=== PATIENT | female | born 1975 | race Two or more races ===

== ENCOUNTER 2016-09-04 22:57 | Inpatient (IN) | payer BC, OTHER ==
[~2016-09-04] VITALS: Ht 170.2 cm; Wt 62.6 kg
[~2016-09-04 22:57] MED LIST: ALBU18HF2 INH; ASPI-612 PO; DIPH50CA37 PO; EPIN0.3P3 IJ; FLUT16SP NS; Gabapentin PO; IBUP-1481 PO; LORA-114 PO; NAPH15DR8 OP
[2016-09-05] MEDS ORDERED: diphenhydrAMINE 50 MG CAPSULE PO PRN (01:00)
[2016-09-05] MEDS ORDERED: MAGNESIUM HYDROXIDE 30 ML LIQUID UDC PO PRN (01:00)
[2016-09-05] MEDS ORDERED: THIAMINE HCL 200 MG/2 ML VIAL IM ONE (01:00)
[2016-09-05] MEDS ORDERED: MIRALAX 17 GM POWD.PACK PO PRN (01:00)
[2016-09-05] MEDS ORDERED: CLONIDINE HCL 0.1 MG TABLET PO PRN (01:00)
[2016-09-05] MEDS ORDERED: LORAZEPAM 2 MG/1 ML VIAL IM PRN (01:00)
[2016-09-05] MEDS ORDERED: PATIENT MAY USE OWN MED- MD OK EACHEYE PRN (01:00)
[2016-09-05] MEDS ORDERED: LORAZEPAM 1 MG TABLET PO PRN ×2 (01:00)
[2016-09-05] MEDS ORDERED: METHOCARBAMOL 750 MG TABLET PO PRN (01:00)
[2016-09-05] MEDS ORDERED: MAG HYDROX/AL HYDROX/SIMETH 30 ML LIQUID UDC PO PRN (01:00)
[2016-09-05] MEDS ORDERED: LOPERAMIDE HCL 2 MG CAPSULE PO PRN ×2 (01:00)
[2016-09-05 01:57] LABS: BASOPHILS # (AUTO) 0.1 K/uL (0.0-8.0); BASOPHILS % (AUTO) 0.9 % (0.0-2.0); EOSINOPHILS # (AUTO) 0.5 K/uL (0.0-0.7); EOSINOPHILS % (AUTO) 6.5 % (0.0-7.0); HEMOGLOBIN 14.9 g/dL (10.9-14.3); LYMPHOCYTES # (AUTO) 3.8 K/uL (20.0-40.0); LYMPHOCYTES % (AUTO) 51.5 % (20.5-51.5); MEAN CORPUSCULAR HEMOGLOBIN 33.3 uug (24.7-32.8); MEAN CORPUSCULAR HGB CONC 35 g/dL (32.3-35.6); MEAN CORPUSCULAR VOLUME 94.2 fL (75.5-95.3); MONOCYTES # (AUTO) 0.4 K/uL (2.0-10.0); MONOCYTES % (AUTO) 5.2 % (0.0-11.0); NEUTROPHILS # (AUTO) 2.7 K/uL (1.8-8.9); NEUTROPHILS % (AUTO) 35.9 % (38.5-71.5); PLATELET COUNT (AUTO) 278 K/uL (179-408); RED BLOOD CELL COUNT(AUTO) 4.46 MIL/uL (3.63-4.92); RED CELL DISTRIBUTION WIDTH 13.1 % (12.3-17.7); WHITE BLOOD COUNT (AUTO) 7.5 K/uL (3.8-11.8)
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
[2016-09-05 02:08] LABS: ALBUMIN 4.1 g/dL (3.4-5.0); BILIRUBIN,TOTAL 0.3 mg/dL (0.2-1.0); CALCIUM 8.9 mg/dL (8.5-10.1); MAGNESIUM 1.9 mg/dL (1.8-2.4); POTASSIUM 3.7 mmol/L (3.5-5.1); TOTAL PROTEIN, SERUM 7.8 g/dL (6.4-8.2)
[2016-09-05 02:19] LABS: THYROID STIMULATING HORMONE 1.104 mIU/mL (0.358-3.740)
[2016-09-05 02:24] LABS: HIV-1 p24 ANTIGEN NON REACTIVE (NONREACTIVE); HIV-1/2 ANTIBODY NON REACTIVE (NONREACTIVE)
[2016-09-05 02:48] LABS: *URINE HCG, QUAL NEGATIVE (NEGATIVE)
[2016-09-05 02:56] LABS: *AMPHETAMINE, URINE NEGATIVE (NEGATIVE); *BARBITURATE, URINE NEGATIVE (NEGATIVE); *CANNABINOID, URINE NEGATIVE (NEGATIVE); *COCCAINE, URINE NEGATIVE (NEGATIVE); *OPIATE, URINE NEGATIVE (NEGATIVE); *PHENCYCLIDINE SCREEN,URINE NEGATIVE (NEGATIVE)
[2016-09-05] MEDS: ONDANSETRON ODT 4 MG TAB.RAPDIS SL PRN ×2 (03:59→13:41)
[2016-09-05 04:00] VITALS: BP 103/70
--- NOTE | 2016-09-05 04:00 | NUR ---
PRN ATIVAN/ZOFRAN Pt complains of nausea, and observed to be anxious, agitated and restless. PRN Ativan 1 mg administered for CIWA 7, PRN Zofran administered as ordered. Respirations 16, breathing even and unlabored. Safety measures in place. Will monitor effectiveness.
[2016-09-05] MEDS ORDERED: THIAMINE HCL 200 MG/2 ML VIAL ONE (04:02)
[2016-09-05] MEDS ORDERED: LORAZEPAM 1 MG TABLET ONE (04:02)
[2016-09-05] MEDS ORDERED: ONDANSETRON ODT 4 MG TAB.RAPDIS ONE (04:09)
--- NOTE | 2016-09-05 05:00 | NUR ---
PRN ATIVAN/ZOFRAN REASSESSMENT PRN Ativan and Zofran effective. Pt lying comfortably in bed with eyes closed noted to be asleep. No facial grimacing. Respirations 16, breathing is even and unlabored. Pt safe with bed locked in lowest position, side rails up x2 and call light within reach. Will monitor.
[2016-09-05] MEDS: ONDANSETRON 4 MG/2 ML VIAL IM PRN (07:20)
--- NOTE | 2016-09-05 07:23 | NUR ---
PRN ZOFRAN IM Pt noted with nausea and vomiting x1. PRN Zofran IM administered as ordered. Breathing even and unlabored, respirations 16. Safety measures in place. Will endorse to monitor effectiveness.
--- NOTE | 2016-09-05 07:29 | NUR ---
END OF SHIFT Pt is a 41 year old female admitted on 09/05/16 for ETOH, opiate and methadone dependency. She is full code with allergy to walnuts and PCN. She reports PMHx of anxiety. At 0400 she received PRN Ativan 1 mg for anxiety, agitation and restlessness and PRN Zofran for nausea. PRN medications were effective. At 0723 pt received PRN Zofran IM for nausea and vomiting x1. She slept a total of 2 hrs, Intake: 690 mL, Void: x1, BM: 0. COWS:8, CIWA:7. Pt is alert and oriented x4, breathing is even and unlabored. Pt safe with bed locked in lowest position, side rails up x2 and call light within reach. Endorsed to oncoming shift.
[2016-09-05 08:00] VITALS: BP 107/73
--- NOTE | 2016-09-05 08:00 | NUR ---
Start of Shift Pt is a 41 year old female admitted for ETOH dependence, placed on Ativan taper. Pt reported consuming Vodka 1/5 and a few beers for the past 6 months. PMH: anxiety, allergies to PCN and walnuts, regular diet, fall/seizure precautions and full code. Upon assessment, pt reports feeling anxious, restless, nauseated, chills/flushing, visible tremors, skin is clammy/flushed, pt reports muscle aches throughout body with mild dizziness/headache, respirations are unlabored, denies SOB/chest pain, denies SI/HI, safety measures in place, call light within reach, side rails up x2, bed locked and in low position. Will continue to monitor.
--- NOTE | 2016-09-05 08:23 | NUR ---
PRN Zofran IM Reassessment PRN Zofran IM administered by night nurse at 0723 d/t n/v. Upon reassessment, reports no episodes of vomiting, reports mild nausea. Needs met, safety measures in place. Will continue to monitor.
[2016-09-05] MEDS: MULTIVITAMINS,THERAPEUTIC TABLET PO SCH (08:44)
[2016-09-05] MEDS: FOLIC ACID 1 MG TABLET PO SCH (08:45)
[2016-09-05] MEDS: THIAMINE HCL 100 MG TABLET PO SCH (08:45)
[2016-09-05] MEDS: IBUPROFEN 600 MG TABLET PO PRN ×2 (08:45→18:11)
[2016-09-05] MEDS: GABAPENTIN 300 MG CAPSULE PO SCH ×3 (08:45→21:10)
[2016-09-05] MEDS: LORATADINE 10 MG TABLET PO SCH (08:45)
--- NOTE | 2016-09-05 08:45 | NUR ---
PRN Administration Pt reported headache, rated 5/10, request relief of pain. Motrin 600mg PRN administered. Safety measures in place. Will continue to monitor.
[2016-09-05] MEDS: LORAZEPAM 1 MG TABLET PO SCH ×4 (08:49→21:09)
[2016-09-05] MEDS: FLUTICASONE PROP NASAL SPRAY 16 GM BOTTLE NS SCH (08:55)
[2016-09-05] MEDS ORDERED: TUBERCULIN,PURIF.PROT.DERIV. 5 TU/0.1 ML TEST ID ONE (09:00)
--- NOTE | 2016-09-05 09:45 | NUR ---
PRN Reassessment Upon reassessment, pt rated headache 2-3/10. Pt states headache is subsiding. Needs met. Safety measures in place. Will continue to monitor.
[2016-09-05 12:00] VITALS: BP 126/85
--- NOTE | 2016-09-05 12:16 | NUR ---
Therapist encouraged client to attend group therapy session.
--- NOTE | 2016-09-05 13:41 | NUR ---
PRN Administration Pt reported feeling nausea, no emesis present. Zofran 4mg ODT administered. Safety measures in place. Will continue to monitor.
--- NOTE | 2016-09-05 14:41 | NUR ---
PRN Reassessment Upon reassessment, pt reports a decrease in nausea. needs met. safety measures in place. Will continue to monitor.
[2016-09-05 16:00] VITALS: BP 112/88
--- NOTE | 2016-09-05 18:11 | NUR ---
PRN Administration Pt reported headache rated 6/10, requested relief. Motrin 600mg PRN administered. Safety measures in place. will continue to monitor.
[2016-09-05] MEDS: NAPHAZOLINE/PHENIR OPHT DROP 15 ML BOTTLE EACHEYE PRN (18:19)
--- NOTE | 2016-09-05 19:11 | NUR ---
PRN Reassessment Pt stated subsiding headache, 06/21. Safety measures in place. Will continue to monitor.
--- NOTE | 2016-09-05 19:13 | NUR ---
End of Shift Pt is a 41 year old female admitted for ETOH dependence, placed on Ativan taper. Pt reported consuming Vodka 1/5 and a few beers for the past 6 months. PMH: anxiety, allergies to PCN and walnuts, regular diet, fall/seizure precautions and full code. During shift, pt presented with anxiety, restlessness, nausea, chill/flushing, visible tremors, skin clammy/flushed, presented with muscle aches with mild dizziness/headache - scheduled taper medications administered, CIWA 12 at 1600, COWS 6 at 1600 . PRN Motrin 600mg x2 PRN administered for headache, effective as reported by patient. Naphcon-A opht drops administered for c/o itchy eyes, effective. Pt continues on Ativan taper. Patient encouraged to attend group therapies/sessions to learn new coping skills to recent relapse. Patient encouraged adequate PO fluid intake as tolerated. Intake of 1921 ml PO, with voids x3. Safety measures in place, call light within reach, side rails up x2, bed locked and in low position. Endorsed to hourly shift nurse.
--- NOTE | 2016-09-05 19:15 | NUR ---
Start of Shift Note: Patient is a 41 y/o female admitted on 09/05/16 for ETOH dependence. Patient reported drinking 750ml of Vodka and a few beers daily for 6 months. Patient also has been using [place] 60-70 mg daily for 6 months. Last use was 08/29/16 and has used Methadone 10mg once. Patient has Anxiety. No seizure history noted. Patient is on a regular diet with allergies Penicillins and Wallnuts. Full Code status. Fall and Seizure precaution noted. Patient was started on a 5-day Ativan taper and tolerating well. Last CIWA is 11, COWS 6 noted. Patient was given PRN Zofran and Motrin x2 during day shift. No episode of vomiting during day shift noted. Patient is alert & oriented x4. No shortness of breath noted. Respiration even & unlabored. Abdomen soft & non-distended. Bowel sounds active in all four quadrants. No nausea/vomiting noted. Patient denies body pain/discomfort. Patient complains of chills, mild headache and dizziness. Bilateral hand tremors noted. No hallucinations. Patient denies Si/HI. Safety precautions are in place. Bed locked in lowest position. Both side rails up. Call light within pt's reach. Will continue to monitor patient.
[2016-09-05 20:00] VITALS: BP 132/87
[2016-09-05] MEDS: PATIENT MAY USE OWN MED- MD OK INH PRN (21:10)
--- NOTE | 2016-09-05 21:10 | NUR ---
PRN Albuterol Patient complains of Shortness of breath. Patient noted with slight wheezing upon auscultation. PRN Albuterol given as ordered. Will continue to monitor patient.
[2016-09-05] MEDS: ACETAMINOPHEN 325 MG TABLET PO PRN (21:18)
--- NOTE | 2016-09-05 21:18 | NUR ---
PRN Tylenol Patient complains of mild headache. PRN Tylenol administered as ordered. Will reassess effectiveness of medication in 1 hour. Will continue to monitor patient.
--- NOTE | 2016-09-05 21:30 | NUR ---
ECG EKG DONE PER MD ORDER. EKG SHOWS NORMAL SINUS RHYTHM, NORMAL ECG NOTED. MD AWARE
--- NOTE | 2016-09-05 21:40 | NUR ---
PRN Reassessment Pt denies SOB at this time. No wheezing noted upon auscultation. All needs met. safety precautions are in place. Will continue to monitor patient.
--- NOTE | 2016-09-05 22:18 | NUR ---
PRN Reassessment Patient verbalized relief from headache. All needs met. Safety precautions are in place. Will continue to monitor patient.
[2016-09-06] VITALS: BP_SYST 121; BP_SYST 122; BP_DIAS 75; BP_DIAS 76
[2016-09-06 04:00] VITALS: BP 132/91
[2016-09-06] MEDS: PATIENT MAY USE OWN MED- MD OK INH PRN (04:51)
[2016-09-06] MEDS: NAPHAZOLINE/PHENIR OPHT DROP 15 ML BOTTLE EACHEYE PRN (04:51)
[2016-09-06] MEDS: HYDROXYZINE PAMOATE 25 MG CAPSULE PO PRN ×3 (05:38→17:47)
[2016-09-06] MEDS: IBUPROFEN 600 MG TABLET PO PRN ×3 (06:53→17:47)
--- NOTE | 2016-09-06 06:53 | NUR ---
PRN MOTRIN PATIENT COMPLAINS OF 5/10 LEFT RIB PAIN RADIATING TO RIGHT CHEST AND RIGHT ARMPIT. PATIENT APPEARS ANXIOUS. NO STOMACH CRAMPS NOTED. NO RASHES OR ITCHINESS NOTED. VITALS WNL. B/P 138/93, HR 82, RR 18, O2SAT 98% TEMP 98.0. PRN MOTRIN GIVEN ORDERED. SAFETY PRECAUTIONS IN PLACE. WILL CONTINUE TO MONITOR PATIENT.
--- NOTE | 2016-09-06 07:23 | NUR ---
End of Shift Note: Patient is a 41 y/o female admitted on 09/05/16 for ETOH dependence. Patient reported drinking 750ml of Vodka and a few beers daily for 6 months. Patient also has been using [place] 60-70 mg daily for 6 months. Last use was 08/29/16 and has used Methadone 10mg once. Patient has Anxiety. No seizure history noted. Patient is on a regular diet with allergies Penicillins and Wallnuts. Full Code status. Fall and Seizure precaution noted. Patient was started on a 5-day Ativan taper and tolerating well. last COWS 5 CIWA 5. Pt was given PRN Tylenol, Albuterol 2x, Eyedrops, Motrin & Vistaril and were effective. Pt complained of right rib pain radiating to right chest and right armpit. EKG done yesterday and shown normal sinus rhythm with normal ECG result noted. Pt stated that she has been having the chest pain that is radiating to shoulders for 2 weeks now. PRN Motrin was given to relieve discomfort. Vitals remained WNL. Pt slept for a total of 6 hours. Pt consumed 1737ml of fluids. Voided 2x with no bowel movement. All needs attended & met. Safety precautions are in place. Will endorse to day shift nurse.
--- NOTE | 2016-09-06 07:25 | NUR ---
Start Of Shift Received, patient is a 41 y/o female admitted on 09/05/16 for ETOH dependence. Pt A&O x3 this am. Pt is on a 5 day Ativan taper. Pt stated that she feels anxious and was not able to sleep well last night. RR even and unlabored at 18. Pt presented with a mild headache, stated she had a stuffy nose. Pt received PRN Tylenol, Albuterol 2x, Eye drops, Motrin & Vistaril, medications were effective per restaurant shift supervisor nurse. Pt slept a total of 6 hours last night, her last COWS 5 and her last CIWA 5. Pt had an EKG completed last night, not abnormalities found, MD aware. Encouraged increased fluids to help facilitate detox. Pt continues to be on fall and seizure precautions, pt is allergic to PNC and walnuts. Side rails upx2, call light within reach, bed locked in lowest position, will continue to monitor and provide care.
[2016-09-06 08:00] VITALS: BP 137/87
[2016-09-06] MEDS: GABAPENTIN 300 MG CAPSULE PO SCH ×2 (08:41→15:17)
[2016-09-06] MEDS: LORAZEPAM 1 MG TABLET PO SCH ×3 (08:41→21:17)
[2016-09-06] MEDS: MULTIVITAMINS,THERAPEUTIC TABLET PO SCH (08:41)
[2016-09-06] MEDS: FLUTICASONE PROP NASAL SPRAY 16 GM BOTTLE NS SCH (08:41)
[2016-09-06] MEDS: LORATADINE 10 MG TABLET PO SCH (08:42)
[2016-09-06] MEDS: FOLIC ACID 1 MG TABLET PO SCH (08:42)
[2016-09-06] MEDS: THIAMINE HCL 100 MG TABLET PO SCH (08:42)
[2016-09-06] MEDS: ONDANSETRON ODT 4 MG TAB.RAPDIS SL PRN (10:43)
--- NOTE | 2016-09-06 10:45 | NUR ---
PRN MEDICATION Pt c/o Anxiety presented with agitation and restlessness pt also complained of generalized pain rating it 5/10 and nausea, no vomiting reported, requested something for relief, non-pharmacological techniques interventions provided x3 and were not effective. PRN Vistaril 25mg, Zofran ODT4mg and Motrin 600mg administered PO, educated pt about s/e of medication and when to contact nurse. all needs met, all safety measures in place, will continue to monitor.
--- NOTE | 2016-09-06 11:45 | NUR ---
PRN REASSESSMENT Upon reassessment medication noted to be effective pt reported a decrease in pain to 1/10 reported a decrease in nausea and anxiety. Instructed pt to contact nurse if pain reoccurred. All needs met, all safety measures in place will continue to monitor.
[2016-09-06 12:00] VITALS: BP 125/77
[2016-09-06] MEDS ORDERED: CLONIDINE HCL 0.1 MG TABLET PO ONE (12:15)
[2016-09-06] MEDS ORDERED: LORAZEPAM 1 MG TABLET PO ONE (12:15)
[2016-09-06 13:25] LABS: HCV AB <0.1 s/co ratio (0.0-0.9); HEPATITIS B CORE AB, IgM Negative (Negative); HEPATITIS B SURFACE AG Negative (Negative)
[2016-09-06 16:00] VITALS: BP 129/90
--- NOTE | 2016-09-06 17:45 | NUR ---
PRN MEDICATION Pt c/o Anxiety presented with agitation and restlessness pt also complained of headache rating it 7/10 requested something for relief, non-pharmacological techniques interventions provided x3 and were not effective. PRN Vistaril 25mg, and Motrin 600mg administered PO, educated pt about s/e of medication and when to contact nurse. all needs met, all safety measures in place, will continue to monitor.
--- NOTE | 2016-09-06 18:49 | NUR ---
PRN reassessment Medication effective pt reported a decrease in pain to 3/10 and stated that she is no longer feeling anxious.
--- NOTE | 2016-09-06 18:50 | NUR ---
End Of Shift Pt is a 41 year old female admitted for ETOH. Full code regular diet continues to be on fall and seizure precautions, denies any food or drug allergies. Patient alert and oriented x4, vital signs were stable during shift. Patient compliant with therapeutic plan of care. Patient continues on 5 day Ativan taper as ordered, well tolerated, no ASE noted. Patient encouraged adequate PO fluid intake as tolerated. Upon assessment patient presented with c/o chills, dilated pupils, stomach cramps, fatigue, mild anxiety, mild agitation and barely sweating with her last COWS score of: 5 and CIWA score of: 5 @1600. Detox medication effective at reducing withdrawal symptoms. Patient encouraged to attend group therapies/sessions to learn new coping skills to recent relapse, noted attending groups throughout the day, patient denies SI/HI. Pt ate all of her meals, her total fluid intake was 2996 with 5 void and 1 bowel movement ,Pt received PRN Vistaril 25mgx2 Zofran ODT 4mg, Motrin 400mg x2 all medications were effective. Safety measures in place. Call light kept within reach. Patient endorsed to shift superintendent nurse, all pertinent information discussed.
--- NOTE | 2016-09-06 19:15 | NUR ---
Start of Shift Note: Received pt from day shift nurse. Patient is a 41 y/o female admitted on 09/05/16 for ETOH dependence. Patient reported drinking 750ml of Vodka and a few beers daily for 6 months. Patient also has been using [place] 60-70 mg daily for 6 months. Last use was 08/29/16 and has used Methadone 10mg once. Patient has Anxiety. No seizure history noted. Patient is on a regular diet with allergies Penicillins and Wallnuts. Full Code status. Fall and Seizure precaution noted. Patient is on a 5-day Ativan taper and tolerating well. Last CIWA is 6, COWS 5 noted. Patient was given PRN Zofran, Motrin x2, Vistaril x2, a one time Ativan & Clonidine during day shift. No episode of vomiting during day shift noted. Patient is alert & oriented x4. Patient is anxious and emotional. Patient is not in distress. No shortness of breath noted. Respiration even & unlabored. Abdomen soft & non-distended. Bowel sounds active in all four quadrants. No nausea/vomiting noted. Patient denies body pain/discomfort. Patient complains of chills, sweating, 6/10 headache and dizziness. Bilateral hand tremors noted. No hallucinations. Patient denies Si/HI. Safety precautions are in place. Bed locked in lowest position. Both side rails up. Call light within pt's reach. Will continue to monitor patient.
[2016-09-06 20:00] VITALS: BP 122/91
[2016-09-06] MEDS ORDERED: GABAPENTIN 300 MG CAPSULE PO SCH (21:00)
[2016-09-06] MEDS: ACETAMINOPHEN 325 MG TABLET PO PRN (21:17)
--- NOTE | 2016-09-06 21:17 | NUR ---
PRN Administration Patient complaining of 6/10 headache and dizziness. Instructed patient to stay in bed for precaution. Patient requesting medication for relief. PRN Tylenol administered as ordered. Encourage pt to increase fluid intake. Pt also requesting for medication to help her sleep. PRN Trazodone given as ordered. Safety precautions are in place. Will continue to monitor patient.
[2016-09-06] MEDS: TRAZODONE 50 MG TABLET PO PRN (21:18)
[2016-09-06] MEDS: PRAZOSIN HCL 1 MG CAPSULE PO SCH (21:18)
--- NOTE | 2016-09-06 22:17 | NUR ---
PRN Reassessment Patient still awake at this time. Pt verbalized relief from headache. Patient lying in bed and appears comfortable. Will continue to monitor patient.
[2016-09-07] VITALS: BP 121/78
[2016-09-07 04:00] VITALS: BP 118/80
[2016-09-07] MEDS: IBUPROFEN 600 MG TABLET PO PRN ×3 (04:30→21:02)
--- NOTE | 2016-09-07 04:30 | NUR ---
PRN Administration Patient complains of headache and back pain. Patient noted to be restless with facial grimacing noted. PRN Motrin administered as ordered. Will continue to monitor patient.
--- NOTE | 2016-09-07 05:30 | NUR ---
PRN Reassessment Patient is asleep at this time and appears comfortable. No facial grimacing noted. Patient not in any distress. No shortness of breath noted. safety precautions are in place. Will continue to monitor patient.
--- NOTE | 2016-09-07 07:02 | NUR ---
End of Shift Note: Patient is a 41 y/o female admitted on 09/05/16 for ETOH dependence. Patient has Anxiety. No seizure history noted. Patient is on a regular diet with allergies to Penicillins and Wallnuts. Full Code status. Fall and Seizure precaution noted. Patient is on a 5-day Ativan taper and tolerating well. Last COWS is 3 CIWA 5. Pt reported that detox medication is effective in controlling her withdrawal symptoms. Patient is compliant with medications and attends groups to learn new coping skills. Patient remained stable and Vitals remained WNL throughout my shift. Pt was given PRN Trazodone, Tylenol & Motrin and were effective. Pt slept for a total of 7 hours. Pt consumed 1796 ml of fluids. Voided 2x with 1x bowel movement. All needs attended & met. Safety precautions are in place. Will endorse to day shift nurse.
--- NOTE | 2016-09-07 07:41 | NUR ---
START OF SHIFT NOTE: Received report from diagnostic imaging manager nurse. Patient is a 41 y/o female admitted on 09/05/16 for ETOH dependence. Pt is currently on a 5 day Ativan taper. Tolerating well. Pt is awake, alert and oriented X4. Color good, skin warm and dry. Respirations even and unlabored. Pt resting in bed. Safety precautions observed. Call light within reach. Will continue to monitor.
[2016-09-07 08:00] VITALS: BP 122/78
--- NOTE | 2016-09-07 09:30 | NUR ---
VSS CIWA 10. Pt with anxiety and tremors. Albuterol inhaler 2 puffs prn administered
[2016-09-07] MEDS: FLUTICASONE PROP NASAL SPRAY 16 GM BOTTLE NS SCH (09:32)
[2016-09-07] MEDS: GABAPENTIN 300 MG CAPSULE PO SCH ×3 (09:32→21:02)
[2016-09-07] MEDS: LORATADINE 10 MG TABLET PO SCH (09:32)
[2016-09-07] MEDS: MULTIVITAMINS,THERAPEUTIC TABLET PO SCH (09:32)
[2016-09-07] MEDS: LORAZEPAM 1 MG TABLET PO SCH ×3 (09:33→16:47)
[2016-09-07] MEDS: PATIENT MAY USE OWN MED- MD OK INH PRN (09:33)
[2016-09-07] MEDS: FOLIC ACID 1 MG TABLET PO SCH (09:33)
[2016-09-07] MEDS: THIAMINE HCL 100 MG TABLET PO SCH (09:33)
--- NOTE | 2016-09-07 10:45 | NUR ---
Zofran 4mg sl prn given for N+V
[2016-09-07] MEDS: ONDANSETRON ODT 4 MG TAB.RAPDIS SL PRN ×2 (10:47→14:18)
--- NOTE | 2016-09-07 11:49 | NUR ---
Pt states feels much improved after Zofran prn. Emesis ceased and nausea improved.
--- NOTE | 2016-09-07 12:00 | NUR ---
MOM 30cc po prn, Miralax po prn for constipation and Motrin 600mg po prn given for headache.
[2016-09-07] MEDS ORDERED: LORAZEPAM 1 MG TABLET PO ONE (12:45)
--- NOTE | 2016-09-07 12:45 | NUR ---
Pt states feels improved after extra dose of Ativan 2 mg. CIWA 9
--- NOTE | 2016-09-07 12:45 | NUR ---
Pt states feels improved after Ativan 2mg extra dose. ZOILA 9 Addendum: 09/07/16 at 1358 by JAY CARUSO RN please disregard duplicate post
--- NOTE | 2016-09-07 12:52 | NUR ---
Extra dose of Ativan 2mg po X1 given as ordered. CIWA 11 and patient with moderate upper extremity tremors and anxiety.
[2016-09-07 12:57] VITALS: BP 130/80
--- NOTE | 2016-09-07 13:00 | NUR ---
Pt states no results after MOM and Mirilax prn
--- NOTE | 2016-09-07 13:56 | NUR ---
Pt states vomited after eating lunch.
--- NOTE | 2016-09-07 14:20 | NUR ---
Zofran 4mg sl prn and Vistaril 25mg po prn given.
[2016-09-07] MEDS: HYDROXYZINE PAMOATE 25 MG CAPSULE PO PRN (14:21)
--- NOTE | 2016-09-07 15:15 | NUR ---
Pt feels improved after Zofran 4mg sl prn. Emesis ceased and nausea improved
--- NOTE | 2016-09-07 15:20 | NUR ---
Pt states feels less anxious after Vistaril 25mg po prn
[2016-09-07] MEDS ORDERED: MAGNESIUM CITRATE 296 ML BOTTLE PO ONE (16:45)
[2016-09-07] MEDS: ONDANSETRON 4 MG/2 ML VIAL IM PRN (17:12)
--- NOTE | 2016-09-07 17:15 | NUR ---
Zofran 4mg IM prn given for N+V.
[2016-09-07 17:22] VITALS: BP 115/86
--- NOTE | 2016-09-07 18:05 | NUR ---
Pt feels improved after Zofran 4mg IM prn. Eating dinner.
--- NOTE | 2016-09-07 18:38 | NUR ---
END OF SHIFT NOTE: Report given to director of academic nurse. Patient is a 41 y/o female admitted on 09/05/16 for ETOH dependence. Pt is currently on a 5 day Ativan taper. Tolerating well. Pt is awake, alert and oriented X4. Color good, skin warm and dry. Respirations even and unlabored. Vital signs have remained stable throughout shift . Last CIWA 11 @ 1700. Pt resting in bed. Pt received Zofran 4mg sl prn given for N+V X2 1045 and 1420. Vistaril 25mg po prn given @ 1420. Also received Zofran 4mg IM prn @ 1715. Extra dose of Ativan 2mg po X1 given @ 1252. Also received MOM and Miralax prn @ 1200 without results. Safety precautions observed. Call light within reach.
--- NOTE | 2016-09-07 19:15 | NUR ---
Start of Shift Note: Received pt from day shift nurse. Patient is a 41 y/o female admitted on 09/05/16 for ETOH dependence. Patient reported drinking 750ml of Vodka and a few beers daily for 6 months. Patient also has been using [place] 60-70 mg daily for 6 months. Last use was 08/29/16 and has used Methadone 10mg once. Patient has Anxiety. No seizure history noted. Patient is on a regular diet with allergies Penicillins and Wallnuts. Full Code status. Fall and Seizure precaution noted. Patient is on a 5-day Ativan taper and tolerating well. Last CIWA is 11. Pt had been constantly nauseous the whole day and had 2 episodes of vomiting during day shift. Patient was given PRN Zofran SL x2, Zofran IM, Ativan 2mg, Albuterol Vistaril, MOM & Miralax. Patient is alert & oriented x4. Patient appears anxious. Patient is not in distress. No shortness of breath noted. Respiration even & unlabored. Abdomen soft & non-distended. Bowel sounds active in all four quadrants. No nausea/vomiting noted. Patient denies body pain/discomfort. Patient complains of stomach cramps, constipartion, chills, sweating, 6/10 headache and dizziness. Bilateral hand tremors noted. No hallucinations. Patient denies Si/HI. Safety precautions are in place. Bed locked in lowest position. Both side rails up. Call light within pt's reach. Will continue to monitor patient.
[2016-09-07 20:00] VITALS: BP 109/72
[2016-09-07] MEDS ORDERED: LORAZEPAM 1 MG TABLET PO SCH (21:00)
[2016-09-07] MEDS: PRAZOSIN HCL 1 MG CAPSULE PO SCH (21:02)
[2016-09-07] MEDS: TRAZODONE 50 MG TABLET PO PRN (21:02)
--- NOTE | 2016-09-07 21:02 | NUR ---
PRN Motrin & Trazodone Patient complains of 7/10 headache and dizziness and requesting for medication for relief. Patient is anxious and restless. Pt also requesting for medication to help her sleep. PRN Motrin & Trazodone given as ordered. Will reassess in 1 hour for effectiveness of medication.
--- NOTE | 2016-09-07 22:02 | NUR ---
PRN Reassesment Pateint still awake at this time. Patient verbalized relief from headache with a pain scale of 3/10 noted at this time. Patient lying in bed and appears comfortable. Will continue to monitor patient.
[2016-09-08] VITALS: BP 118/81
[2016-09-08 04:00] VITALS: BP 118/80
--- NOTE | 2016-09-08 07:04 | NUR ---
End of Shift Note: Patient is a 41 y/o female admitted on 09/05/16 for ETOH dependence. Patient has Anxiety. No seizure history noted. Patient is on a regular diet with allergies to Penicillins and Wallnuts. Full Code status. Fall and Seizure precaution noted. Patient is on a 5-day Ativan taper and tolerating well. Last COWS is 7 CIWA 9. Pt reported that detox medication is effective in controlling her withdrawal symptoms. Patient is compliant with medications. Patient was given Magnesium Citrate for constipation but still with no bowel movement noted throughout the shift. Pt was also given PRN Motrin for headache and Trazodone for sleep and were effective. Patient remained stable and Vitals remained WNL throughout my shift. Pt slept for a total of 9 hours. Pt consumed 896 ml of fluids. Voided 2x with no bowel movement. All needs attended & met. Safety precautions are in place. Will endorse to day shift nurse.
--- NOTE | 2016-09-08 07:31 | NUR ---
START OF SHIFT NOTE: Received report from police shift commander nurse. Patient is a 41 y/o female admitted on 09/05/16 for ETOH dependence. Pt is currently on a 5 day Ativan taper. Tolerating well. Pt is awake, alert and oriented X4. Color good, skin warm and dry. Respirations even and unlabored. Pt resting in bed. Safety precautions observed. Call light within reach. Will continue to monitor.
[2016-09-08 07:46] LABS: BASOPHILS % (AUTO) 0.4 % (0.0-2.0); EOSINOPHILS # (AUTO) 0.3 K/uL (0.0-0.7); EOSINOPHILS % (AUTO) 5.5 % (0.0-7.0); HEMATOCRIT 42.2 % (31.2-41.9); HEMOGLOBIN 14.3 g/dL (10.9-14.3); LYMPHOCYTES # (AUTO) 1.7 K/uL (20.0-40.0); LYMPHOCYTES % (AUTO) 28.6 % (20.5-51.5); MEAN CORPUSCULAR HGB CONC 34 g/dL (32.3-35.6); MEAN CORPUSCULAR VOLUME 97.1 fL (75.5-95.3); MONOCYTES # (AUTO) 0.4 K/uL (2.0-10.0); MONOCYTES % (AUTO) 7.6 % (0.0-11.0); NEUTROPHILS # (AUTO) 3.5 K/uL (1.8-8.9); NEUTROPHILS % (AUTO) 57.9 % (38.5-71.5); PLATELET COUNT (AUTO) 235 K/uL (179-408); RED BLOOD CELL COUNT(AUTO) 4.34 MIL/uL (3.63-4.92); RED CELL DISTRIBUTION WIDTH 13.2 % (12.3-17.7); WHITE BLOOD COUNT (AUTO) 5.9 K/uL (3.8-11.8)
[2016-09-08 08:05] LABS: ALBUMIN 3.5 g/dL (3.4-5.0); BILIRUBIN,DIRECT 0.1 mg/dL (0.0-0.2); BILIRUBIN,TOTAL 0.3 mg/dL (0.2-1.0); CALCIUM 9.1 mg/dL (8.5-10.1); CREATININE 0.9 mg/dL (0.6-1.3); MAGNESIUM 2.3 mg/dL (1.8-2.4); PHOSPHOROUS 4.5 mg/dL (2.5-4.9); POTASSIUM 4.3 mmol/L (3.5-5.1); TOTAL PROTEIN, SERUM 6.8 g/dL (6.4-8.2)
[2016-09-08] MEDS: THIAMINE HCL 100 MG TABLET PO SCH (09:43)
[2016-09-08] MEDS: FOLIC ACID 1 MG TABLET PO SCH (09:43)
[2016-09-08] MEDS: GABAPENTIN 300 MG CAPSULE PO SCH ×3 (09:43→20:59)
[2016-09-08] MEDS: FLUTICASONE PROP NASAL SPRAY 16 GM BOTTLE NS SCH (09:44)
[2016-09-08] MEDS: LORATADINE 10 MG TABLET PO SCH (09:44)
[2016-09-08] MEDS: MULTIVITAMINS,THERAPEUTIC TABLET PO SCH (09:44)
[2016-09-08] MEDS: LORAZEPAM 1 MG TABLET PO SCH ×2 (09:44→14:33)
[2016-09-08 09:55] VITALS: BP 100/60
--- NOTE | 2016-09-08 10:03 | NUR ---
VSS CIWA 8 Pt still with anxiety, tremors and headache.
[2016-09-08] MEDS: PATIENT MAY USE OWN MED- MD OK INH PRN (11:04)
[2016-09-08] MEDS ORDERED: ALBUTEROL SULFATE 8 GM HFA.AER.AD IH PRN (11:15)
[2016-09-08] MEDS ORDERED: ALBUTEROL SULFATE 2.5 MG/3 ML NEBU NEB PRN (11:15)
--- NOTE | 2016-09-08 11:15 | NUR ---
Albuterol inhaler 2 puffs prn given for cough.
[2016-09-08] MEDS ORDERED: LORAZEPAM 1 MG TABLET PO ONE (12:00)
--- NOTE | 2016-09-08 12:30 | NUR ---
Ativan 1mg po X1 given as ordered. CIWA 10
[2016-09-08 12:56] VITALS: BP 100/60
[2016-09-08] MEDS: DICYCLOMINE HCL 20 MG TABLET PO PRN (13:25)
--- NOTE | 2016-09-08 13:29 | NUR ---
Clonidine 0.1 mg po prn, Bentyl 20mg po prn and Robaxin 750mg po prn given
--- NOTE | 2016-09-08 13:30 | NUR ---
Pt states anxiety lessened after Ativan 1mg po X1. CIWA 9
[2016-09-08 17:50] VITALS: BP 111/74
[2016-09-08] MEDS: HYDROXYZINE PAMOATE 25 MG CAPSULE PO PRN (18:20)
[2016-09-08] MEDS: IBUPROFEN 600 MG TABLET PO PRN (18:20)
--- NOTE | 2016-09-08 18:24 | NUR ---
Motrin 600mg po prn and Vistaril 50mg po prn given for anxiety.
--- NOTE | 2016-09-08 18:25 | NUR ---
END OF SHIFT NOTE: Report given to evening or night nurse supervisor nurse. Patient is a 41 y/o female admitted on 09/05/16 for ETOH dependence. Pt is currently on a 5 day Ativan taper. Tolerating well. Pt is awake, alert and oriented X4. Color good, skin warm and dry. Respirations even and unlabored. Vital signs have remained stable throughout shift . Last CIWA 12 @ 1500. Ativan 1mg po X1 given @ 1230. Clonidine 0.1 mg po prn, Bentyl 20mg po prn and Robaxin 750mg po prn given @ 1330. Vistaril 50mg po prn and Motrin 600mg po prn given @ 1820. Safety precautions observed. Call light within reach.
[2016-09-08] MEDS ORDERED: METHYL SALICYLATE/MENTHOL CREAM 28 GM TUBE TOP PRN (18:30)
[2016-09-08 20:00] VITALS: BP 112/69
--- NOTE | 2016-09-08 20:00 | NUR ---
Start of Shift Pt is a 41 year old female admitted for ETOH dependence, placed on Ativan taper. Pt reported consuming Vodka 1/5 and a few beers for the past 6 months. PMH: anxiety, allergies to PCN and walnuts, regular diet, fall/seizure precautions and full code. Upon assessment, pt is anxious, in emotional volatility - crying, flushed face/clammy/sweaty skin, tremors visible, and restless. respirations are unlabored, denies SOB/chest pain, denies SI/HI. Comfort/calming measures provided. Safety measures in place, call light within reach, side rails up x2, bed locked and in low position. Will continue to monitor. Addendum: 09/09/16 at 0445 by SHAVONNE SHIELDS RN Motrin 600mg po prn and Vistaril 50mg po prn given for anxiety during day at 1824. Pt reports "medications made me feel okay". Will administer scheduled routine medications, safety measures in place, will continue to monitor.
[2016-09-08] MEDS ORDERED: LORAZEPAM 1 MG TABLET PO SCH (21:00)
[2016-09-08] MEDS: PRAZOSIN HCL 1 MG CAPSULE PO SCH (21:00)
[2016-09-09] VITALS: BP 117/84
--- NOTE | 2016-09-09 | NUR ---
Vital Signs BP 117/84, pulse 80, SpO2 98%, respirations 14, temp 97.9 CIWA deferred d/t pt sleeping, to assess while pt is awake as ordered. Safety measures in place. Will continue to monitor.
[2016-09-09 04:00] VITALS: BP 121/76
--- NOTE | 2016-09-09 04:00 | NUR ---
Vital Signs BP 121/76, pulse 82, SpO2 98%, respirations 16, temp 97.8 CIWA deferred d/t pt sleeping, to assess while pt is awake as ordered. Safety measures in place. Will continue to monitor.
[2016-09-09] MEDS: PATIENT MAY USE OWN MED- MD OK INH PRN (06:02)
--- NOTE | 2016-09-09 06:02 | NUR ---
PRN Albuterol PRN Albuterol inhaler 2 puffs administered for wheezing/SOB. Safety measures in place, will continue to monitor.
--- NOTE | 2016-09-09 07:00 | NUR ---
End of Shift Pt is a 41 year old female admitted for ETOH dependence, placed on Ativan taper. Pt reported consuming Vodka 1/5 and a few beers for the past 6 months. PMH: anxiety, allergies to PCN and walnuts, regular diet, fall/seizure precautions and full code. During shift, pt presented with anxiety, emotional volatility - crying, flushed face/clammy/sweaty skin, tremors visible, and restless - scheduled taper medications administered, CIWA 11. Comfort measures provided. PRN Albuterol inhaler 2 puffs administered for wheezing/SOB at 0602, effective. Pt slept for 7 hours, intake of 2500 ml PO and voids x3. Safety measures in place, call light within reach, side rails up x2, bed locked and in low position. Endorsed to day shift nurse.
--- NOTE | 2016-09-09 07:18 | NUR ---
Start Of Shift Received, patient is a 41 y/o female admitted for ETOH dependence. Pt A&O x3 this am. Pt continues 5 day Ativan taper. RR even and unlabored at 18. Pt stated she had a stuffy nose and presented with some sweats. Pt received PRN Albuterol last night medication was effective per machinist 2nd shift nurse. Pt slept a total of 7 hours last night, her last COWS 6 and her last CIWA 11. Encouraged increased fluids to help facilitate detox. Pt continues to be on fall and seizure precautions, pt is allergic to PNC and walnuts. Side rails upx2, call light within reach, bed locked in lowest position, will continue to monitor and provide care.
[2016-09-09 08:00] VITALS: BP 100/64
[2016-09-09] MEDS: FOLIC ACID 1 MG TABLET PO SCH (09:11)
[2016-09-09] MEDS: THIAMINE HCL 100 MG TABLET PO SCH (09:11)
[2016-09-09] MEDS: GABAPENTIN 300 MG CAPSULE PO SCH ×2 (09:11→14:12)
[2016-09-09] MEDS: MULTIVITAMINS,THERAPEUTIC TABLET PO SCH (09:11)
[2016-09-09] MEDS: LORAZEPAM 1 MG TABLET PO SCH ×2 (09:11→20:39)
[2016-09-09] MEDS: FLUTICASONE PROP NASAL SPRAY 16 GM BOTTLE NS SCH (09:11)
[2016-09-09] MEDS: LORATADINE 10 MG TABLET PO SCH (09:11)
[2016-09-09 12:00] VITALS: BP 119/76
[2016-09-09] MEDS: DULOXETINE 30 MG CAPSULE.DR PO SCH (12:15)
--- NOTE | 2016-09-09 12:20 | NUR ---
Patient Endorsed Pt endorsed to another RN, Pt is A&Ox4 vitals WNL, report given to nurse, No PRN medications given, Last COWS 5 CIWA 6.
--- NOTE | 2016-09-09 12:21 | NUR ---
ASSUMED CARE Pt endorsement report received from primary nurse. All pertinent information discussed. Will cont to monitor.
--- NOTE | 2016-09-09 12:41 | NUR ---
REFUSED MED Pt refused Cymbalta 30mg a cap Po, offered x3 risk and benefits explained, pt still refused.
[2016-09-09] MEDS: IBUPROFEN 600 MG TABLET PO PRN ×2 (12:42→22:19)
--- NOTE | 2016-09-09 12:42 | NUR ---
PRN MOTRIN Pt c/o of headache 08/19, non pharmacological intervention ineffective. Administered Motrin 600mg Po PRN as ordered. Will cont to monitor and reassess the pt.
--- NOTE | 2016-09-09 13:42 | NUR ---
REASSESSMENT Pt reported medication effective pain subside to 05/21. Will cont to monitor.
[2016-09-09 16:00] VITALS: BP 128/89
[2016-09-09] MEDS: ACETAMINOPHEN 325 MG TABLET PO PRN (16:25)
[2016-09-09] MEDS: HYDROXYZINE PAMOATE 25 MG CAPSULE PO PRN ×2 (16:32→22:18)
--- NOTE | 2016-09-09 16:32 | NUR ---
PRN TYLENOL/VISTARIL Pt c/o of headache 5/10, anxiety, non pharmacological intervention ineffective. Administered Tylenol 650 mg Po PRN/Vistaril 50mg as ordered. Safety measures in place. Will cont to monitor and reassess the pt.
--- NOTE | 2016-09-09 17:32 | NUR ---
REASSESSMENT Pt reported medication effective pain subside to 1/10 and anxiety decreased.
--- NOTE | 2016-09-09 19:07 | NUR ---
END OF SHIFT NOTE Gave report to night nurse, 41 year old female admitted for ETOH dependence, placed on Ativan taper. Allergic to PCN and walnuts, regular diet, fall/seizure precautions and full code. Pt reported consuming Vodka 1/5 and a few beers for the past 6 months. Pt reported PMH anxiety,During shift, pt presented with anxiety,emotional volatility crying, headache PRN medications administered noted to be effective. Pt refused Cymbalta 30mg. Last CIWA-5, COWS-4. Comfort measures provided. Pt's total intake 2500ml, Voided x2. Pt attended groups and activities. Safety measures in place bed on lowest position with side rails x2 up for safety, call light within reach. Pt endorse pt to night nurse in stable condition.
[2016-09-09 20:00] VITALS: BP 122/74
--- NOTE | 2016-09-09 20:00 | NUR ---
End of Shift Pt is a 41 year old female admitted for ETOH dependence, placed on Ativan taper. Pt reported consuming Vodka 1/5 and a few beers for the past 6 months. PMH: anxiety, allergies to PCN and walnuts, regular diet, fall/seizure precautions and full code. Upon assessment, pt is anxious, reports mild chills throughout body, flushed face/clammy/sweaty skin, tremors visible. respirations are unlabored, denies SOB/chest pain, denies SI/HI. Comfort/calming measures provided. Safety measures in place, call light within reach, side rails up x2, bed locked and in low position. Will continue to monitor. Addendum: 09/09/16 at 2255 by SHAVONNE SHIELDS RN CORRECTION: START OF SHIFT
[2016-09-09] MEDS: PRAZOSIN HCL 1 MG CAPSULE PO SCH (20:39)
[2016-09-09] MEDS: GABAPENTIN 400 MG CAPSULE PO SCH (20:40)
[2016-09-09] MEDS ORDERED: GABAPENTIN 300 MG CAPSULE PO SCH (21:00)
--- NOTE | 2016-09-09 22:18 | NUR ---
PRN Administration Pt reports back pain rated 7/10 and feeling anxious. Motrin 600mg PRN and Vistaril 50mg PRN Safety measures in place. Will continue to monitor.
--- NOTE | 2016-09-09 23:18 | NUR ---
PRN Reassessment 2318 Upon reassessment, pt reports relief of back pain rated 2-3/10 and subsiding. Pt reports relief of anxiety. Medications effective. Safety measures in place. Will continue to monitor.
[2016-09-10] VITALS: BP 119/82
--- NOTE | 2016-09-10 01:09 | NUR ---
PRN Administration Pt requested aid to help her sleep. Benadryl 50mg PRN administered. Safety measures in place. Will continue to monitor.
--- NOTE | 2016-09-10 02:09 | NUR ---
PRN Reassessment Upon reassessment, pt is sleeping, eyes closed, respirations even and unlabored. Medication effective. Safety measures in place. Will continue to monitor.
[2016-09-10 04:00] VITALS: BP 117/68
--- NOTE | 2016-09-10 04:00 | NUR ---
Vital Signs BP 117/68, pulse 83, respirations 16, SpO2 98%, temp 97.9, no reports of pain CIWA/COWS deferred d/t pt sleeping, to assess while pt is awake as ordered. Safety measures in place. Will continue to monitor.
--- NOTE | 2016-09-10 07:00 | NUR ---
End of Shift Pt is a 41 year old female admitted for ETOH dependence, placed on Ativan taper. Pt reported consuming Vodka 1/5 and a few beers for the past 6 months. PMH: anxiety, allergies to PCN and walnuts, regular diet, fall/seizure precautions and full code. During shift, pt presented with anxiety, mild chills throughout body, flushed face/clammy/sweaty skin tremors visible - scheduled taper medications administered, effective in management in s/s of withdrawal, CIWA 4 and COWS 4. Motrin 600mg PRN and Vistaril 50mg PRN administered, effective. Benadryl 50mg PRN administered for sleep, effective. Pt slept for 6 hours, intake of 1250 ml PO and voids x3. Safety measures in place, call light within reach, side rails up x2, bed locked and in low position. Endorsed to day shift nurse.
--- NOTE | 2016-09-10 07:05 | NUR ---
Start of Shift Endorsement received from nightshift nurse. Pt is a 41 y/o female admitted for alcohol, norco and methadone dependence. Pt is tolerating the taper well AEB COWS 4, CIWA 4 at midnight. Pt received PRN Vistaril, Motrin and Benadryl. PT reports sleeping 6 hours. Allergies: Penicillin and Walnuts. VS WNL, Full Code. Hx of a Asthma. Pt is mildly withdrawing at this time AEB COWS 3, CIWA 4 at 0400. Pt slept 3 hours. PT is alert and oriented x4. Pt is in STABLE condition at this time. Remains compliant with medication and diet regimen. All needs have been met, All safety measures in place per hospital policy. Bed in lowest position, side rails up x2, call-light within reach. Will continue to monitor
[2016-09-10 08:00] VITALS: BP 122/87
[2016-09-10] MEDS: MULTIVITAMINS,THERAPEUTIC TABLET PO SCH (08:34)
[2016-09-10] MEDS: NAPHAZOLINE/PHENIR OPHT DROP 15 ML BOTTLE EACHEYE PRN (08:34)
[2016-09-10] MEDS: FLUTICASONE PROP NASAL SPRAY 16 GM BOTTLE NS SCH (08:34)
[2016-09-10] MEDS: GABAPENTIN 300 MG CAPSULE PO SCH ×2 (08:34→14:51)
[2016-09-10] MEDS: DULOXETINE 30 MG CAPSULE.DR PO SCH ×2 (08:35→08:38)
[2016-09-10] MEDS: LORATADINE 10 MG TABLET PO SCH (08:35)
[2016-09-10] MEDS: THIAMINE HCL 100 MG TABLET PO SCH (08:35)
[2016-09-10] MEDS: FOLIC ACID 1 MG TABLET PO SCH (08:35)
[2016-09-10] MEDS ORDERED: LORAZEPAM 1 MG TABLET PO SCH (09:00)
--- NOTE | 2016-09-10 10:05 | NUR ---
PRN Medications Administered PRN Motrin for 6/10 headache and body aches. Also administered PRN Bentyl for stomach cramps.
[2016-09-10] MEDS: DICYCLOMINE HCL 20 MG TABLET PO PRN (10:06)
[2016-09-10] MEDS: IBUPROFEN 600 MG TABLET PO PRN ×2 (10:06→17:35)
--- NOTE | 2016-09-10 10:30 | NUR ---
Medication re-assessment Motrin was effective, pt reports 2/10 pain. Bentyl was also effective, pt reports relieve from stomach cramps
[2016-09-10 12:00] VITALS: BP 115/79
[2016-09-10] MEDS: HYDROXYZINE PAMOATE 25 MG CAPSULE PO PRN ×2 (13:19→19:55)
--- NOTE | 2016-09-10 13:19 | NUR ---
PRN Vistaril Administered PRN Vistaril for 5/10 anxiety reported by pt.
[2016-09-10 13:46] LABS: *BARBITURATE, URINE NEGATIVE (NEGATIVE); *CANNABINOID, URINE NEGATIVE (NEGATIVE); *COCCAINE, URINE NEGATIVE (NEGATIVE); *OPIATE, URINE NEGATIVE (NEGATIVE); *PHENCYCLIDINE SCREEN,URINE NEGATIVE (NEGATIVE)
--- NOTE | 2016-09-10 13:50 | NUR ---
Medication re-assessment Medication was effective, pt reports 0/10 anxiety at this time.
[2016-09-10 13:55] LABS: *AMPHETAMINE, URINE NEGATIVE (NEGATIVE)
[2016-09-10 16:00] VITALS: BP 122/79
[2016-09-10] MEDS ORDERED: PRAZ1CAP2 PO (16:51)
[2016-09-10] MEDS ORDERED: HYDR-3895 PO (16:51)
[2016-09-10] MEDS ORDERED: DIPH50CA37 PO (16:51)
[2016-09-10] MEDS ORDERED: Gabapentin PO ×2 (16:51)
[2016-09-10] MEDS ORDERED: Duloxetine Hcl PO (16:51)
[2016-09-10] MEDS ORDERED: Ibuprofen PO (16:52)
--- NOTE | 2016-09-10 17:36 | NUR ---
PRN Medication Administration Pt is flushed with anxiety and crying at the nursing station and c/o PRESTON 11/18 pain and requested Motrin, so PRN Motrin 600mg PO given as ordered and endorsed to assigned nurse to reassess it in 1H.
--- NOTE | 2016-09-10 18:52 | NUR ---
End of Shift Endorsement given to nightshift nurse. Pt is a 41 y/o female admitted for alcohol, [place] and methadone dependence. Pt is tolerating the taper well, moderately withdrawing at this time AEB COWS 5, CIWA 5 at 1600. Pt received PRN Vistaril and Motrin x2. PT is scheduled for discharge on 09/11/16. Pt reports readiness for discharge. Educated pt on deep breathing technique to help relieve anxiety she was experiencing after attending group. PT participated in groups and activities. Intake: 3806ml, Void x7, BM x2. Allergies: Penicillin and Walnuts. VS WNL, Full Code. Hx of a Asthma. PT is alert and oriented x4. Pt is in STABLE condition at this time. Remains compliant with medication and diet regimen. All needs have been met, All safety measures in place per hospital policy. Bed in lowest position, side rails up x2, call-light within reach. Will continue to monitor
--- NOTE | 2016-09-10 19:15 | NUR ---
START OF SHIFT Received 41 year old female patient admitted on 09/05/16 for ETOH, [place] and Methadone dependency. Pt is full code with allergy to PCN and walnuts. She reports a history of anxiety and asthma. Pt reports drinking ETOH 1/5th a few beers daily for 6 months. Last dose was 1 pint , 1/5th, 3 beers and 10 (1.7oz) bottles on 09/04/16. [place] 60-70 mg daily for 6 months. Last dose was on 08/29/16. And methadone 10 mg x1 day. Last dose was 10 mg on 09/01/16. She received a 5 day Ativan taper and tolerated well. She is scheduled to be DC tomorrow. Per endorsement, pt received PRN Vistaril, Bentyl, and Motrin. Pt is alert and oriented x4, breathing is even and unlabored. Pt safe with bed locked in lowest position, side rails up x2 and call light within reach. Will continue to monitor.
--- NOTE | 2016-09-10 19:55 | NUR ---
PRN VISTARIL Pt complains of anxiety. Pt observed to be restless in room and unable to sit still. PRN Vistaril administered as ordered. Breathing even and unlabored, safety measures in place. Will monitor effectiveness of medication.
[2016-09-10 20:00] VITALS: BP 139/85
[2016-09-10] MEDS: PRAZOSIN HCL 1 MG CAPSULE PO SCH (20:33)
[2016-09-10] MEDS: GABAPENTIN 400 MG CAPSULE PO SCH (20:33)
--- NOTE | 2016-09-10 20:55 | NUR ---
PRN VISTARIL REASSESSMENT PRN medication effective. Pt reports feeling less anxious and appears to be more calm. Breathing is even and unlabored, safety measures in place. Will monitor.
[2016-09-10] MEDS: TRAZODONE 50 MG TABLET PO PRN (23:41)
--- NOTE | 2016-09-10 23:41 | NUR ---
PRN TRAZODONE Pt complains of inability to fall asleep. PRN Trazodone administered as ordered. Breathing even and unlabored, safety measures in place. Will monitor effectiveness.
[2016-09-11] VITALS: BP 113/70
--- NOTE | 2016-09-11 00:41 | NUR ---
PRN TRAZODONE REASSESSMENT PRN medication effective. Pt lying in bed with eyes closed and is asleep. Respirations 16, breathing is even and unlabored. Safety measures in place. Will monitor.
[2016-09-11 04:00] VITALS: BP 116/80
--- NOTE | 2016-09-11 04:00 | NUR ---
COWS/CIWA DEFERRED COWS and CIWA deferred d/t pt is lying in bed with eyes closed and is asleep. Respirations 16, breathing is even and unlabored. Safety measures in place. Will continue to monitor.
--- NOTE | 2016-09-11 07:08 | NUR ---
END OF SHIFT Pt is a 41 year old female patient admitted on 09/05/16 for ETOH, [place] and Methadone dependency. Pt is full code with allergy to PCN and walnuts. She reports a history of anxiety and asthma. She is scheduled to be DC today (09/11/16). At 1955 she received PRN Vistaril and at 2341 she received PRN Trazodone. PRN medications were effective. She slept a total of 6 hrs, Intake: 1250 mL, Void: x3 COWS:3, CIWA:3. Pt is alert and oriented x4, breathing is even and unlabored. Pt safe with bed locked in lowest position, side rails up x2 and call light within reach. Endorsed to oncoming shift.
[2016-09-11 08:00] VITALS: BP 111/75
[2016-09-11] MEDS: GABAPENTIN 300 MG CAPSULE PO SCH (08:32)
[2016-09-11] MEDS: THIAMINE HCL 100 MG TABLET PO SCH (08:33)
[2016-09-11] MEDS: DULOXETINE 30 MG CAPSULE.DR PO SCH ×2 (08:33→08:38)
[2016-09-11] MEDS: FOLIC ACID 1 MG TABLET PO SCH (08:33)
[2016-09-11] MEDS: FLUTICASONE PROP NASAL SPRAY 16 GM BOTTLE NS SCH (08:33)
[2016-09-11] MEDS: LORATADINE 10 MG TABLET PO SCH (08:33)
[2016-09-11] MEDS: MULTIVITAMINS,THERAPEUTIC TABLET PO SCH (08:33)
[2016-09-11] MEDS: HYDROXYZINE PAMOATE 25 MG CAPSULE PO PRN (09:25)
--- NOTE | 2016-09-11 09:25 | NUR ---
PRN VISTARIL Patient complained of anxiety. PRN vistaril po given. Will continue to monitor patient.
--- NOTE | 2016-09-11 10:15 | NUR ---
REASSEESSMENT PRN VISTARIL Patient appears calmer, pt. reports she is being much better.
--- NOTE | 2016-09-11 10:30 | NUR ---
DISCHARGE NOTE Patient was discharged in a stable condition. Alert and oriented X4, vitals WNL, skin intact, denies any suicidal or homicidal ideations. Patient took her AM medications. All discharge paperwork completed, signed and dated. Patient provided with discharge instructions, to monitor any signs and symptoms of withdrawals and notify MD, patient verbalized understanding. Last CIWA 4 and COWS: 4: Discharge plan was coordinated by the life care planner and the patient. Patient was picked up by her fiancee from [facility] at 10:27am. Patient left the facility with all of her belongings and prescriptions.
== END 2016-09-11 10:27 | disposition other institution (70) | DRG 895 ==
LOC: SRC 09-05 00:05
PROVIDERS: ADMIT Internal Medicine; ATTEND Internal Medicine
PROC: HZ2ZZZZ Detoxification Services for Substance Abuse Treatment (ICD-10-PCS; principal; 2016-09-05)
PROC: HZ41ZZZ Group Counseling for Substance Abuse Treatment, Behavioral (ICD-10-PCS; principal; 2016-09-05)
PROC: HZ31ZZZ Individual Counseling for Substance Abuse Treatment, Behavioral (ICD-10-PCS; 2016-09-06)
DX: F10.239 Alcohol dependence with withdrawal, unspecified (principal); E87.3 Alkalosis; F11.20 Opioid dependence, uncomplicated; E87.1 Hypo-osmolality and hyponatremia; F14.21 Cocaine dependence, in remission; Y90.9 Presence of alcohol in blood, level not specified; Z91.5 Personal history of self-harm; J45.20 Mild intermittent asthma, uncomplicated; Z82.49 Family history of ischemic heart disease and other diseases of the circulatory system; Z81.8 Family history of other mental and behavioral disorders; Z81.1 Family history of alcohol abuse and dependence; F41.0 Panic disorder [episodic paroxysmal anxiety]; G47.00 Insomnia, unspecified; F39 Unspecified mood [affective] disorder; F17.210 Nicotine dependence, cigarettes, uncomplicated; E86.0 Dehydration; F51.4 Sleep terrors [night terrors]
CPT/HCPCS: 36415; 70030-TC; 71010; 80307; 82306; 83690; 83735; 84100; 84443; 84703; 85025; 86592; 86705; 86803; 87340; 87806; 93005; A4663; G6040-TC; J2405; J3411; J3535; Q0162; Q0163